=== PATIENT | male | born 1985 | race Caucasian/White ===

== ENCOUNTER 2018-06-16 04:45 | Emergency (ER) | payer MEDICAID ==
--- NOTE | 2018-06-16 04:58 | EDPHY ---
H & P Time Seen by Provider: 06/16/18 04:47 HPI/ROS: Chief Complaint: Bug bites, anxiety HPI: 33-year-old male presenting to the emergency department complaining of bug bites and feeling increasingly anxious. Patient states he has been staying at a friend's house for the last 2 days. He feels that there were bugs crawling all over him. He is brought in 3 specimens in specimen jar with EMS. EMS states that healthy is filthy. Patient states he is getting increasingly anxious because he is covered in bugs. He is itching. He has pulled what he believes are bugs off of him. Does admit to marijuana use. Denies any other drug or alcohol use. No fevers or chills. No skin rash. Denies suicidal homicidal. No other auditory or visual hallucinations. ROS: 10 systems were reviewed and were negative except those elements noted in the HPI. PMH: Anxiety Social History: No smoking, no alcohol, occasional marijuana Family History: non-contributory Physical Exam: Gen: Awake, Alert, No Distress HEENT: Nose: no rhinorrhea Eyes: PERRLA, EOMI Mouth: Moist mucosa Neck: Supple, no JVD Chest: nontender, lungs clear to auscultation Heart: S1, S2 normal, no murmur Abd: Soft, non-tender, no guarding Back: no CVA tenderness, no midline tenderness Ext: no edema, non-tender Skin: no rash Neuro: CN II-XII intact, Sensation grossly intact, Strength 5/5 in bilateral upper and lower extremities Medical Decision Making ED Course/Re-evaluation: 33-year-old presenting with concerns of bug bites and anxiety. For some reason he was placed on a mental health hold. He certainly does not meet any criteria for a hold at this time. I have terminated the hold. I have conducted a thorough skin examination I do not see any evidence of any insect infestation. There are no nits. There is no rash. There are no burrows or erythematous markings suggestive of scabies, no bites suggestive of bedbugs. There are no nits or any infestations in his hair suggestive of lice. I have examined the specimens that he brought in with him under magnification. These are certainly not insects or parts of insects. They appear to be portions of scabs from his skin. There is no evidence of any insect infestation at this time. He was in dirty conditions and it is possible that he had some insects crawling on him. I have advised him to seek a different place to stay. He I do not think he needs any permethrin or any specific topical treatment at this time. Patient will be discharged with referral to [facility] for any concerns about ongoing anxiety. Departure - Departure Disposition: Home, Routine, Self-Care Clinical Impression: Anxiety reaction Condition: Good Instructions: Anxiety (ED) Additional Instructions: Follow up with primary care physician in 2-3 days for further evaluation. You may follow up with [facility] for worsening anxiety or depression. Referrals: [facility],. [Clinic] - As per Instructions
[2018-06-16 05:06] VITALS: BP 95/78
== END 2018-06-16 05:05 | disposition home or self-care (01) ==
DX: F41.9 Anxiety disorder, unspecified (principal)